=== PATIENT | female | born 1940 | race Caucasian/White ===

== ENCOUNTER 2018-06-06 11:31 | Emergency (ER) | payer MEDICARE, BC ==
[2018-06-06 12:38] LABS: HEMATOCRIT 38.7 % (35.0-47.0); HEMOGLOBIN 11.4 gm/dl (11.6-16.0); MEAN CELL VOLUME 87.6 fl (81-97); MEAN CORPUSCULAR HGB CONC 29.5 g/dl (32-36); MEAN PLATELET VOLUME 9.6 fl (7.4-10.4); PLATELET COUNT 501 K/uL (130-400); RED BLOOD COUNT 4.42 M/uL (3.80-5.40); WHITE BLOOD COUNT W/O DIFF 9.9 K/uL (4.2-12.2)
--- NOTE | 2018-06-06 12:39 | Emergency Department Record ---
History of Present Illness - General Chief Complaint: Shortness of breath Stated Complaint: SHORTNESS OF BREATH Time Seen by Provider: 06/06/18 11:59 Source: Patient Mode of Arrival: Stretcher Limitations: No limitations - History of Present Illness Initial Comments: pt has been sob for the last week. she denies cp but states that she feels like something is sitting on her chest. she had nausea 1 day MD Complaint: Shortness of breath Onset/Timin -: Week(s) Quality: Aching Consistency: Constant Improves With: Nothing Known History Of: COPD, Other Associated Symptoms: Nausea/vomiting Treatments Prior to Arrival: None - Related Data Home Oxygen Amount: CPAP Home Medications Medication Instructions Recorded Confirmed Last Taken Apixaban [Eliquis] 5 mg PO BID 06/06/18 06/06/18 06/06/18 Diltiazem HCl [Diltiazem ER] 180 mg PO DAILY 06/06/18 06/06/18 06/05/18 Furosemide [Lasix] 20 mg PO DAILY 06/06/18 06/06/18 06/05/18 Metoprolol Tartrate [Lopressor] 50 mg PO BID 06/06/18 06/06/18 06/06/18 Omeprazole 20 mg PO DAILY 06/06/18 06/06/18 06/06/18 Allergies Allergy/AdvReac Type Severity Reaction Status Date / Time No Known Drug Allergies Allergy Verified 06/06/18 12:18 Travel Screening - Travel/Exposure Within Last 30 Days Have you traveled within the last 30 days?: No - Travel/Exposure Within Last Year Have you traveled outside the [place] in the last year?: No - Additonal Travel Details Have you been exposed to anyone with a communicable illness?: No - Travel Symptoms Symptom Screening: None Review of Systems Reviewed: No additional complaints except as noted below Constitutional: Reports: As per HPI. Denies: Chills, Fever, Malaise, Night sweats, Weakness, Weight change Eyes: Reports: As per HPI. Denies: Eye discharge, Eye pain, Photophobia, Vision change ENT: Reports: As per HPI. Denies: Congestion, Dental pain, Ear pain, Epistaxis , Hearing loss, Throat pain Respiratory: Reports: As per HPI, Dyspnea. Denies: Cough, Hemoptysis, Stridor, Wheezes Cardiovascular: Reports: As per HPI. Denies: Arrhythmia, Chest pain, Dyspnea on exertion, Edema, Murmurs, Orthopnea, Palpitations, Paroxysmal nocturnal dyspnea, Rheumatic Fever, Syncope Endocrine: Reports: As per HPI. Denies: Fatigue, Heat or cold intolerance, Polydipsia, Polyuria Gastrointestinal: Reports: As per HPI. Denies: Abdominal pain, Constipation, Diarrhea, Hematemesis, Hematochezia, Melena, Nausea, Vomiting Genitourinary: Reports: As per HPI. Denies: Abnormal menses, Discharge, Dyspareunia, Dysuria, Frequency, Hematuria, Incontinence, Retention, Urgency Musculoskeletal: Reports: As per HPI. Denies: Arthralgia, Back pain, Gout, Joint swelling, Myalgia, Neck pain Skin: Reports: As per HPI. Denies: Bruising, Change in color, Change in hair/ nails, Lesions, Pruritus, Rash Neurological: Reports: As per HPI. Denies: Abnormal gait, Confusion, Headache, Numbness, Paresthesias, Seizure, Tingling, Tremors, Vertigo, Weakness Psychiatric: Reports: As per HPI. Denies: Anxiety, Auditory hallucinations, Depression, Homicidal thoughts, Suicidal thoughts, Visual hallucinations Hematological/Lymphatic: Reports: As per HPI. Denies: Anemia, Blood Clots, Easy bleeding, Easy bruising, Swollen glands Past Medical History - SOCIAL HISTORY Smoking Status: Light tobacco smoker (<10/day) Alcohol Use: None Drug Use: None - RESPIRATORY Hx Respiratory Disorders: Yes Hx Sleep Apnea: Yes Hx of CPAP: Yes - CARDIOVASCULAR Hx Cardio Disorders: Yes Hx CHF: Yes Hx Irregular Heartbeat: Yes (afib) Comment:: ablation - NEURO Hx Neuro Disorders: No - GI Hx GI Disorders: No - Hx Genitourinary Disorders: No - ENDOCRINE Hx Endocrine Disorders: No - MUSCULOSKELETAL Hx Musculoskeletal Disorders: Yes Hx Arthritis: Yes - PSYCH Hx Psych Problems: No - HEMATOLOGY/ONCOLOGY Hx Hematology/Oncology Disorders: No Family Medical History Any Significant Family History?: No Physical Exam - General General Appearance: Alert, Oriented x3, Cooperative, Mild distress - Head Head exam: Normal inspection - Eye Eye exam: Normal appearance, PERRL, EOMI Pupils: Normal accommodation - ENT ENT exam: Normal exam, Mucous membranes moist, Normal external ear exam, Normal orophraynx Ear exam: Normal external inspection. negative: External canal tenderness Nasal Exam: Normal inspection. negative: Discharge, Sinus tenderness Mouth exam: Normal external inspection, Tongue normal Teeth exam: Normal inspection. negative: Dental caries Throat exam: Normal inspection. negative: Tonsillar erythema, Tonsillar exudate - Neck Neck exam: Normal inspection, Full ROM. negative: Tenderness - Respiratory Respiratory exam: Normal lung sounds bilaterally. negative: Respiratory distress - Cardiovascular Cardiovascular Exam: Normal heart sounds, Irregular rhythm - GI/Abdominal GI/Abdominal exam: Soft, Normal bowel sounds. negative: Tenderness - Rectal Rectal exam: Deferred - exam: Deferred - Extremities Extremities exam: Normal inspection, Full ROM, Normal capillary refill. negative: Tenderness - Back Back exam: Reports: Normal inspection, Full ROM. Denies: Muscle spasm, Rash noted, Tenderness - Neurological Neurological exam: Alert, CN II-XII intact, Normal gait, Oriented X3 - Psychiatric Psychiatric exam: Normal affect, Normal mood - Skin Skin exam: Dry, Intact, Normal color, Warm Course Vital Signs 06/06/18 11:34 Temperature 98.1 F Pulse Rate 97 H Respiratory 20 Rate Blood Pressure 155/92 Pulse Ox 97 - Reevaluation(s) Reevaluation #1: 06/06/18 16:49 pt feels better. d/w dr brito and with dr oshea. ct shows mediastinal adenopathy, chf, pleural effusions, cardiomegaly and cholelithiasis Medical Decision Making - Lab Data Result diagrams: 06/06/18 11:15 06/06/18 11:15 Disposition Disposition: Discharge Clinical Impression: Pleural effusion CHF (congestive heart failure) Qualifiers: Heart failure type: unspecified Heart failure chronicity: acute Qualified Code( s): I50.9 - Heart failure, unspecified Afib Qualifiers: Atrial fibrillation type: chronic Qualified Code(s): I48.2 - Chronic atrial fibrillation Cholelithiasis Qualifiers: Cholelithiasis location: gallbladder Cholecystitis presence: without cholecystitis Biliary obstruction: without biliary obstruction Qualified Code(s) : K80.20 - Calculus of gallbladder without cholecystitis without obstruction Disposition: Home, Self-Care Condition: (1) Good Instructions: Dyspnea (ED), Heart Failure (ED), A-fib (Atrial Fibrillation) (ED ) Additional Instructions: follow up with dr brito and with family doctor next week. return sooner if worse. Forms: Patient Portal Access Quality - Quality Measures Quality Measures: N/A - Blood Pressure Screening Does Patient Have Any of the Following: Active Dx of HTN Blood Pressure Classification: Hypertensive Reading Systolic Measurement: 155 Diastolic Measurement: 92 Screening for High Blood Pressure: Patient Exclusion, Hx of HTN [[id number]]
[2018-06-06 12:41] LABS: MEAN CORPUSCULAR HEMOGLOBIN 25.7 pg (27-33)
[2018-06-06 12:52] LABS: ANISOCYTOSIS 1+; PLATELET ESTIMATE INCREASED (NORMAL)
[2018-06-06 12:53] LABS: BLOOD UREA NITROGEN 13 mg/dL (8-23); CREATININE 0.9 mg/dL (0.5-0.9); EST GLOMERULAR FILTRATION RATE > 60 mL/min
[2018-06-06 12:54] LABS: TOTAL PROTEIN 8.6 g/dL (6.6-8.7)
[2018-06-06 12:56] LABS: GLUCOSE,RANDOM 87 mg/dL (74-109)
[2018-06-06 12:58] LABS: ALT/SGPT 8 U/L (<33); AST/SGOT 14 U/L (10.0-35.0)
[2018-06-06 12:59] LABS: ALBUMIN 4.2 g/dL (4.0-5.0); ALKALINE PHOSPHATASE 118 U/L (45-87)
[2018-06-06] MEDS ORDERED: FUROSEMIDE IV 40MG/4ML VIAL IVP ONE (15:12)
--- NOTE | 2018-06-10 05:56 | CT SCAN REPORT ---
DATE: 06/06/2018 at 1355. EXAM: CT ANGIOGRAM OF THE CHEST WITH POSTPROCESSING. HISTORY: Worsening shortness of breath for one week. Elevated D-dimer. TECHNIQUE: Routine CTA examination of the thorax is performed utilizing a pulmonary embolus protocol with 75 mL of Omnipaque 350 utilized. Maximum- intensity projection reformatted images are generated in the coronal and axial plane and reviewed. COMPARISON: None. FINDINGS: Opacification of the pulmonary arteries is satisfactory for interpretation. No luminal filling defect is noted within the outflow trac, main arteries, lobar arteries, nor proximal segmental arteries to suggest acute pulmonary embolic disease. The heart is enlarged with dilatation of the right atrium and right ventricle as well as left atrium. The thoracic aorta is mildly atherosclerotic. No focal aneurysmal dilatation is seen. Opacification of the aorta is nondiagnostic for evaluation of dissection. There are multiple nonenlarged and mildly enlarged mediastinal lymph nodes present. In the right paratracheal region at the level of the aortic arch is a lymph node measuring 1.8 cm in short-axis diameter. Low right paratracheal adenopathy measures 2.1 cm. Subcarinal adenopathy measures 2.4 cm in short- axis diameter, and azygoesophageal recess adenopathy measures 1.6 cm in short- axis diameter. Mild lymphoid tissue prominence is also demonstrated within the ashly. The central airways are clear. Interlobular septal thickening is scattered throughout the lungs most pronounced in the apices. Diagnostic considerations include edema and chronic interstitial change. There are small dependent pleural effusions. Patchy airspace opacities are noted in the dependent lung bases consistent with atelectasis or, less likely, infiltrate. There is a calcified right middle lobe nodule measuring 7.0 mm consistent with healed granulomatous disease. A calcified granuloma is also noted in the lateral basal segment of the left lower lobe as seen on series 4, image 68, measuring approximately 3.0 to 4.0 mm. There is a tiny, 1.0 to 2.0 mm subpleural nodule in the anterior aspect of the left lower lobe as seen on series 4, image 56. This measures approximately 1.0 to 2.0 mm. A couple of tiny nodules are noted within the superior lingular segment; one seen on image 56 and the other seen on image 59. There is a tiny calcified nodule on the anterolateral left upper lobe as seen on series 4, image 26. A small, subpleural nodule on the posterior left upper lobe is seen on image 24 and measures 3.0 mm in diameter. A tiny calcified granuloma is noted in the lateral aspect of the right upper lobe as seen on series 4, image 39. A tiny calcified granuloma is noted in the lateral right lower lobe as seen on image 63. The lungs and pleural spaces are otherwise clear. There are nonenlarged right cardiophrenic lymph nodes. Right mastectomy changes with reconstruction. Right breast implant appears intact. There are a few nonenlarged lymph nodes scattered in each axilla. No lytic or blastic bone lesion. The adrenal glands are not enlarged. Calcified gallstones are present. Calcified granulomata are scattered in the liver and spleen. There is trace ascites along the superior margin of the right liver lobe. IMPRESSION: 1. NO CTA EVIDENCE OF ACUTE PULMONARY EMBOLIC DISEASE. 2. CARDIOMEGALY, BILATERAL PLEURAL EFFUSIONS, AND PROBABLE INTERSTITIAL EDEMA CONSISTENT WITH FLUID OVERLOAD/CONGESTIVE HEART FAILURE. THE RETICULAR OPACITIES WITHIN EACH LUNG COULD ALSO RELATE TO CHRONIC INTERSTITIAL CHANGE. 3. MEDIASTINAL AND BILATERAL HILAR ADENOPATHY OF INDETERMINATE ETIOLOGY. WHILE THESE MAY BE REACTIVE/INFLAMMATORY, MALIGNANCY IS NOT EXCLUDED. COMPARISON TO PRIOR EXAMINATIONS, IF ANY EXIST, IS RECOMMENDED. 4. STATUS POST RIGHT MASTECTOMY WITH BREAST RECONSTRUCTION. SEVERAL SMALL BILATERAL AXILLARY LYMPH NODES ARE PRESENT. 5. 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 6. NOT MENTIONED ABOVE IS MODERATE ATHEROSCLEROTIC CALCIFICATION WITHIN THE LEFT CORONARY ARTERY BRANCHES WELL RIGHT CORONARY ARTERY. 7. CHOLELITHIASIS. 8. TRACE ASCITES WITHIN THE RIGHT SUBDIAPHRAGMATIC REGION. 9. PATCHY OPACITIES IN THE DEPENDENT LUNG BASES CONSISTENT WITH ATELECTASIS OR , LESS LIKELY, INFILTRATE. 10. THERE ARE OCCASIONAL TINY, NONCALCIFIED NODULES WITHIN IN THE LEFT LUNG. THESE ARE LIKELY POSTINFLAMMATORY; THOUGH GIVEN THE PATIENT'S HISTORY OF BREAST MALIGNANCY, FOLLOW-UP CT OF THE CHEST IN 12 MONTHS IS RECOMMENDED. JOB NUMBER: [id number] [facility]
== END 2018-06-06 17:33 | disposition home or self-care (01) ==
LOC: ER 11:31
DX: I50.9 Heart failure, unspecified (principal); R06.02 Shortness of breath; K80.20 Calculus of gallbladder without cholecystitis without obstruction; I10 Essential (primary) hypertension; R11.0 Nausea; F17.210 Nicotine dependence, cigarettes, uncomplicated; I48.91 Unspecified atrial fibrillation
CPT/HCPCS: 99284 ×2; 96374; 80053; 84484; 85379; 85027; 83880; 71275; 93005; 93010; Q9967; J1940